=== PATIENT | female | born 1945 | race Caucasian/White ===

== ENCOUNTER 2019-01-13 17:23 | Emergency (ER) | payer MEDICARE, OTHER ==
--- NOTE | 2019-01-13 17:52 | ED.PDOC ---
History of Present Illness - General Chief Complaint: Skin/Abrasion/Tear Stated Complaint: right toe pain Time Seen by Provider: 01/13/19 17:25 Source: patient Exam Limitations: no limitations - History of Present Illness Initial Comments: Marlen Garcia 73 y/o female came to ER with pain/redness right great started 3 days ago.No history of toe injury. Occurred: other - 3 days ago Pain - Lower Extremity: mild: Right Foot - great toe right Method of Injury: other - NO INJURY Improving Factors: rest Worsening Factors: movement Associated Symptoms: see hpi Allergies/Adverse Reactions: Allergies NO KNOWN ALLERGY Allergy (Verified 01/13/19 17:56) Home Medications: Ambulatory Orders Cephalexin 1,000 mg PO BID 10 Days #40 cap 01/13/19 Review of Systems - Review of Systems Musculoskeletal: States: other - right toe pain All other Systems: Reviewed and Negative, No Change from Baseline Past Medical History (General) - Patient Medical History Hx Diabetes: Yes Surgical History: other - BTL Family Medical History - Family History Mother Living Status: Hx Family Diabetes: Yes Physical Exam - Physical Exam General Appearance: Alert, Comfortable, No apparent distress Eyes, Ears, Nose, Throat: normal ENT inspection Neck: normal inspection Cardiovascular/Respiratory: regular rate, rhythm, normal peripheral pulses Gastrointestinal/Abdominal: non-tender, no organomegaly Back: normal inspection Thigh/Hip: normal inspection, non-tender, no evidence of injury Leg: normal inspection, non-tender, no evidence of injury Knee: normal inspection, non-tender, no evidence of injury Ankle: normal inspection, non-tender, no evidence of injury Foot: other - ingrowing right big toenail Neuro/Tendon: normal sensation, normal motor functions, normal tendon functions Mental Status: alert, depressed affect Progress - Progress Progress: 01/13/19 18:24 Vital Signs - 8 hr 01/13/19 17:52 Temperature 97.9 F Pulse Rate [ 83 monitor] Respiratory 18 Rate Blood Pressure 190/93 [la] O2 Sat by Pulse 96 Oximetry - EKG/XRAY/CT XRAY: toe right no fracture Departure - Departure Clinical Impression: Ingrown toenail of right foot with infection Time of Disposition: 18:25 Disposition: Discharge to Home or Self Care Condition: Fair Departure Forms: ED Discharge - Pt. Copy, Patient Portal Self Enrollment Instructions: Ingrown Toenail (DC), Ingrown Toenail Prescriptions: Cephalexin 1,000 mg PO BID 10 Days #40 cap Home Medications: Ambulatory Orders Cephalexin 1,000 mg PO BID 10 Days #40 cap 01/13/19 Additional Instructions: Follow up with [facility] [place]
[2019-01-13 17:56] VITALS: TEMP 97.9
[2019-01-13] MEDS ORDERED: TETANUS,DIPHTHERIA,PERTUSSIS 1 EA SYG IM ONE (18:00)
[2019-01-13] MEDS ORDERED: CEPHALEXIN MONOHYDRATE 500 MG CAP PO ONE (18:00)
--- NOTE | 2019-01-13 18:11 | RAD ---
EXAM DESCRIPTION: Toes,Right CLINICAL HISTORY: 73 years Female pain COMPARISON: None TECHNIQUE: Three images of the right toes were obtained. FINDINGS: Deformity proximal phalanx fifth toe possibly related to more remote trauma. No acute fracture seen. Marked bony demineralization. No radiopaque foreign body. IMPRESSION: No acute fracture or dislocation seen. Marked osteopenia. More remote trauma proximal phalanx fifth toe. Electronically signed by: Zuly Proctor MD 01/13/2019 6:10 PM CDT
[2019-01-13] MEDS ORDERED: ACETAMINOPHEN W/COD #3 TAB (ER Disp) PO ONE (18:27)
[2019-01-13 18:43] VITALS: BP 187/88; O2SAT 98
== END 2019-01-13 18:43 | disposition home or self-care (01) ==
LOC: ER 17:23
DX: L60.0 Ingrowing nail (principal); L08.9 Local infection of the skin and subcutaneous tissue, unspecified; E11.9 Type 2 diabetes mellitus without complications; Z23 Encounter for immunization